=== PATIENT | female | born 1950 | race Caucasian/White ===

== ENCOUNTER 2017-01-02 20:31 | Emergency (ER) | payer MEDICARE, OTHER ==
[~2017-01-02 20:31] MED LIST: ATROVENT INH S2.5 ML INH; CEFTIN250 MG PO; MEDROL DOSEPAK 24 MG PO; NEURONTIN 300300 MG PO; VENTOLIN/PROVE0.5 ML INH; ZESTRIL10 MG PO
== END 2017-01-02 20:45 | disposition left against medical advice (07) ==
LOC: ER1 20:31
DX: Z53.21 Procedure and treatment not carried out due to patient leaving prior to being seen by health care provider (principal)

== ENCOUNTER 2020-12-13 10:54 | Inpatient (IN) | payer MEDICARE, OTHER ==
[~2020-12-13] VITALS: Ht 152.4 cm; Wt 78.1 kg
[~2020-12-13 10:54] MED LIST changes: +CEFUROXIME500 MG PO; +CRESTOR20 MG PO; +GLUCOPHAGE1000 MG PO; +IPRATROPIU0.2 MG/1 M INH; +KEFLEX CAP 500500 MG PO; +KLONOPIN TAB 00.5 MG PO; +KLONOPIN1 MG PO; +LEVAQUIN500 MG PO; +LEVAQUIN750 MG PO; +LISINOPRIL20 MG PO; +MEDROL4 MG PO; +NORCO 7.5-3251 EACH PO; +PREDNISONE10 MG PO; +PREDNISONE20 MG PO; +PREDNISONE50 MG PO; +PROTONIX40 MG PO; +ROBITUSSIN AC480 ML PO; +SYMBICORT 160-1 INHA INH; +SYNTHROID125 MCG PO; +TESSALON PERLE100 MG PO; +VISTARIL25 MG PO; +WIXELA 250-501 EACH INH; +ZANTAC300 MG PO; +ZITHROMAX250 MG PO
[2020-12-13] MEDS ORDERED: PROVENTIL HFA6.7 GM INH (10:58)
[2020-12-13 14:35] LABS: RED BLOOD COUNT 4.07 M/UL (4.00-5.10)
[2020-12-13] MEDS ORDERED: ALBUTEROL2.5 MG/3 M NEB (16:14)
[2020-12-13] MEDS ORDERED: SINGULAIR10 MG PO (16:14)
[2020-12-13] MEDS ORDERED: JANUVIA100 MG PO (16:14)
[2020-12-13] MEDS ORDERED: ALEVE220 MG PO (16:44)
--- NOTE | 2020-12-13 23:23 | NUR ---
DR. SHRESTHA ADMITTED PT TODAY, BUT SHE WAS IN THE ER FOR 5 HOURS BEFORE COMING TO THE FLOOR. HER HOME MEDICATIONS NOR HER PART ONE WAS COMPLETED. AFTER I FINISHED HER ADMISSION AND HOME MEDS THE PT REQUESTED HER NEURONTIN AND PAIN MEDICATION SHE TAKES AT HOME. I CALLED DR. DICK AND EXPLAINED THAT I UNDERSTOOD HE DIDN'T ADMIT HER BUT WANTED TO KNOW IF SHE COULD HAVE A ONE TIME PAIN MED AND NEURONTIN. HE INTERRUPTED ME AND SAID, "I DON'T KNOW HER, AND I'M NOT GOING TO GIVE HER HOME MEDS. [facility] CAN DEAL WITH IT".
[2020-12-15] MEDS ORDERED: NICOTINE PATCH1 EAC5 TD (13:50)
[2020-12-17] MEDS ORDERED: MUCINEX600 MG PO (11:46)
[2020-12-17] MEDS ORDERED: LEVOFLOXACIN750 MG PO (11:46)
== END 2020-12-17 14:03 | disposition home or self-care (01) | DRG 193 ==
LOC: ER1 10:54 → MED SURG 4 15:46 → CDU 15:46 → MED SURG 4 15:46
PROVIDERS: Physician Assistant Medical; ADMIT Internal Medicine
DX: J18.9 Pneumonia, unspecified organism (principal); J96.21 Acute and chronic respiratory failure with hypoxia; J44.0 Chronic obstructive pulmonary disease with (acute) lower respiratory infection; J44.1 Chronic obstructive pulmonary disease with (acute) exacerbation; M21.922 Unspecified acquired deformity of left upper arm; E11.9 Type 2 diabetes mellitus without complications; I10 Essential (primary) hypertension; F17.210 Nicotine dependence, cigarettes, uncomplicated; Z20.822 Contact with and (suspected) exposure to COVID-19; Z79.899 Other long term (current) drug therapy; K21.9 Gastro-esophageal reflux disease without esophagitis; E03.9 Hypothyroidism, unspecified; E78.5 Hyperlipidemia, unspecified; Z90.710 Acquired absence of both cervix and uterus; Z80.8 Family history of malignant neoplasm of other organs or systems; Z84.89 Family history of other specified conditions; D72.829 Elevated white blood cell count, unspecified
CPT/HCPCS: 0240U; 36600; 71046; 73060; 80053; 82550; 82553; 82803; 82962; 83605; 83874; 83880; 84484; 85025; 85610; 87040; 94640; 94664; 94760; 96372; 96374; 96375; 99285; G0378; J0456; J0696; J1650; J2930; J7030

== ENCOUNTER → 2021-01-01 | Outpatient (CLI) | payer MEDICARE, OTHER ==
[~2021-01-01] MED LIST changes: +ALBUTEROL2.5 MG/3 M NEB; +ALEVE220 MG PO; +JANUVIA100 MG PO; +LEVOFLOXACIN750 MG PO; +MUCINEX600 MG PO; +NICOTINE PATCH1 EAC5 TD; +PROVENTIL HFA6.7 GM INH; +SINGULAIR10 MG PO
== END ==
LOC: RAD 13:19
DX: Z09 Encounter for follow-up examination after completed treatment for conditions other than malignant neoplasm (principal); Z87.01 Personal history of pneumonia (recurrent); R91.8 Other nonspecific abnormal finding of lung field
CPT/HCPCS: 71046

== ENCOUNTER → 2022-02-04 | Outpatient (CLI) | payer MEDICARE, OTHER | LOC: KOH-I 11:30 | DX: F17.210 Nicotine dependence, cigarettes, uncomplicated (principal) | CPT/HCPCS: 71271 ==

== ENCOUNTER 2022-04-09 19:55 | Emergency (ER) | payer MEDICARE, OTHER ==
[2022-04-10 02:04] LABS: HEMOGLOBIN 12.8 gm/dl (12.3-15.3); RED BLOOD COUNT 4.13 M/UL (4.00-5.10); WHITE BLOOD COUNT 14.6 K/UL (4.5-11.0)
== END 2022-04-10 03:00 | disposition home or self-care (01) ==
LOC: ER1 19:55
PROVIDERS: Emergency Medicine
DX: M54.6 Pain in thoracic spine (principal); M54.2 Cervicalgia; M25.512 Pain in left shoulder; M25.511 Pain in right shoulder; E78.5 Hyperlipidemia, unspecified; E11.9 Type 2 diabetes mellitus without complications; K21.9 Gastro-esophageal reflux disease without esophagitis; I10 Essential (primary) hypertension; J44.9 Chronic obstructive pulmonary disease, unspecified; F17.210 Nicotine dependence, cigarettes, uncomplicated; Z90.89 Acquired absence of other organs; Z90.710 Acquired absence of both cervix and uterus
CPT/HCPCS: 72125; 72128; 73030; 80048; 84484; 85025; 93005; 99284